=== PATIENT | male | born 1965 | race Caucasian/White ===

== ENCOUNTER 2017-04-07 08:40 | Day surgery (SDC) | payer OTHER ==
[~2017-04-07] VITALS: Ht 182.9 cm; Wt 107.5 kg
[2017-04-07] MEDS ORDERED: LACTATED RINGERS 1,000 ML IV SCH (09:09)
[2017-04-07] MEDS ORDERED: ZOLP10TA PO (09:11)
[2017-04-07] MEDS ORDERED: VENL75CA PO (09:11)
[2017-04-07] MEDS ORDERED: GABA600T2 PO (09:11)
[2017-04-07] MEDS ORDERED: IBUP1TAB11 PO (09:31)
[2017-04-07] MEDS ORDERED: IBUP200C8 PO (09:31)
[2017-04-07 09:32] VITALS: BP 145/93
[2017-04-07] MEDS ORDERED: BUPIVACAINE/PF-EPI 0.5% 1:200K ONE (10:17)
[2017-04-07] MEDS ORDERED: FENTANYL PF 250 MCG/5ML ONE ×2 (10:40)
[2017-04-07] MEDS ORDERED: MIDAZOLAM 1 MG/ML, 2ML ONE ×2 (10:40)
[2017-04-07] MEDS ORDERED: BACITRACIN 50,000 UNIT ONE (10:45)
[2017-04-07] MEDS ORDERED: DEXAMETHASONE 4 MG/ML, 1ML ONE (11:14)
[2017-04-07] MEDS ORDERED: KETOROLAC 30 MG/1 ML ONE (11:14)
[2017-04-07] MEDS ORDERED: METOCLOPRAMIDE 5 MG/ML, 2ML ONE (11:14)
[2017-04-07] MEDS ORDERED: PROPOFOL 10 MG/ML, 20ML ONE (11:14)
[2017-04-07] MEDS ORDERED: ROCURONIUM 10 MG/ML ONE (11:14)
[2017-04-07] MEDS ORDERED: GLYCOPYRROLATE 0.2MG/1ML ONE (11:14)
[2017-04-07] MEDS ORDERED: ONDANSETRON 2MG/ML, 2ML ONE (11:14)
[2017-04-07] MEDS ORDERED: CEFOTETAN 2 GM ONE (11:14)
[2017-04-07] MEDS ORDERED: NEOSTIGMINE 1 MG/ML, 10ML ONE (11:14)
[2017-04-07] MEDS ORDERED: HYDROmorphone 1 MG/ML, 1ML ONE (12:16)
[2017-04-07] MEDS ORDERED: BACITRACIN OINT 500U/GM, 15 GM ONE (12:29)
[2017-04-07] MEDS ORDERED: FENTANYL PF 100 MCG/2ML IV PRN (13:00)
[2017-04-07] MEDS ORDERED: hydrALAzine 20 MG/ML, 1ML IV PRN (13:00)
[2017-04-07] MEDS ORDERED: ONDANSETRON 2MG/ML, 2ML IVPush PRN (13:00)
[2017-04-07] MEDS ORDERED: MEPERIDINE/PF 25MG/0.5ML IVPush PRN (13:00)
[2017-04-07] MEDS ORDERED: OXYcodone 5 MG/5 ML ORAL.SOL UDC PO PRN (13:00)
[2017-04-07] MEDS ORDERED: HYDROmorphone 1 MG/ML, 1ML IV PRN (13:00)
[2017-04-07] MEDS ORDERED: LABETALOL 5MG/ML, 20ML IV PRN (13:00)
[2017-04-07] MEDS ORDERED: PROMETHAZINE 25 MG/ML, 1ML IV PRN (13:00)
[2017-04-07] MEDS ORDERED: ACETAMINOPHEN 325 MG TABLET PO PRN (13:00)
[2017-04-07] MEDS ORDERED: ACETAMINOPHEN 325 MG TABLET ONE (13:11)
[2017-04-07] MEDS ORDERED: OXYcodone 5 MG/5 ML ORAL.SOL UDC ONE (13:11)
== END 2017-04-07 16:20 | disposition home or self-care (01) ==
LOC: OUT 08:40
PROVIDERS: ATTEND Surgery
DX: K40.00 Bilateral inguinal hernia, with obstruction, without gangrene, not specified as recurrent (principal); E66.9 Obesity, unspecified; Z68.32 Body mass index [BMI] 32.0-32.9, adult; F32.9 Major depressive disorder, single episode, unspecified; M19.90 Unspecified osteoarthritis, unspecified site; G89.4 Chronic pain syndrome; Z72.89 Other problems related to lifestyle; Z87.891 Personal history of nicotine dependence; Z82.49 Family history of ischemic heart disease and other diseases of the circulatory system; Z80.51 Family history of malignant neoplasm of kidney; Z80.0 Family history of malignant neoplasm of digestive organs
CPT/HCPCS: 49650; C1727; C1781; J1100; J1170; J1885; J2250; J2405; J2704; J2710; J2765; J3010; J3490; J7120; S0074